=== PATIENT | female | born 1940 | race Caucasian/White ===

== ENCOUNTER 2017-03-06 17:30 | Emergency (ER) | payer MEDICARE, MEDICAID ==
[~2017-03-06] VITALS: Ht 167.6 cm; Wt 190.9 kg
[2017-03-06 17:49] VITALS: BP 161/68; PULSE 77; RESP 20; O2SAT 94
--- NOTE | 2017-03-06 18:09 | ED.REPORT ---
HPI-General Illness Date of Service Mar 06, 2017 ED Provider: Jer Rodriguez MD Patient is a 76 year old female with a hx of seizures who presents to the ED via EMS from [facility] [place] complaining of a seizure while sitting onset this afternoon. She is amnestic to the event. Per EMS, she had 3 full body clonic tonic seizures within one hour that lasted 1 to 3 minutes each. Upon interviewing patient, she believes the seizures happened yesterday and appears slightly confused. Her only complaint is chronic L lower extremity pain. She denies chest pain, vision changes, headache, abdominal pain, constipation, diarrhea, hematochezia, hematuria, SOB, neck pain, or any other symptoms. She denies any recent illness. History is somewhat limited secondary to patient 's condition. According to her niece (her POA) her last seizure was 4 months ago after which she was seen at [facility]. 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 She takes Keppra for her seizures. Nursing Notes Stated Complaint: SEIZURE Chief Complaint: Neuro Symptoms/ Deficits Nursing Notes Reviewed: Yes Allergies: Coded Allergies: Penicillins (Verified Allergy, Mild, 03/06/17) General Time Seen by MD: 18:07 Chief Complaint Seizure Hx Obtained From: Patient, EMS Arrived By: Ambulance Sudden in Onset?: Yes Similar Sx Previous: Yes Past Medical History Past Medical History Seizures Spinal meningitis Reports: Hypertension Unable to Obtain History Past medical history, Past surgical history, Family history, Smoking history, Social history, Occupation, Ambulatory status Review of Systems Unable to obtain a complete ROS due to mental status. Patient has no complaints besides chronic L lower extremity pain and denies chest pain, vision changes, headache, abdominal pain, constipation, diarrhea, hematochezia, hematuria, SOB, neck pain, or any other symptoms. Unable to Obtain ROS Mental status Physical Exam Vital Signs Vital Signs Date Time Temp Pulse Resp B/P Pulse Ox O2 Delivery O2 Flow Rate FiO2 03/06/17 23:13 72 19 183/71 100 Nasal Cannula 2 03/06/17 21:58 37 88 20 173/81 98 Room Air 03/06/17 19:56 36.1 88 20 184/93 94 Nasal Cannula 2 03/06/17 17:49 36.8 77 20 161/68 94 Room Air Initial VS: Reviewed, Vital signs abnormal General/Constitutional: Awake, Alert Morbidly obese female lying in bed. Not diaphoretic. Head / Eyes: Atraumatic, Normocephalic EOM are normal. Pupils are equal, round, and reactive to light. ENT: Mucous membranes moist No lacerations on tongue Oropharynx is clear and moist. No oropharyngeal exudate. Neck: Supple, Non-tender no tracheal deviation. Respiratory / Chest: No respiratory distress Effort normal and breath sounds normal Cardiovascular: Heart rate NL, Regular rhythm, Heart sounds NL, Peripheral circulation NL, Pulses = bilaterally Abdomen: Atraumatic, Soft, Non-tender, No guarding, No rebound, BS normoactive , No distention Upper Extremities Upper Extremity / MS: Inspection NL Range of motion grossly intact, moving all extremities. No edema or tenderness appreciated Lower Extremity / Pelvis / MS: No edema Diffuse tenderness to the proximal LLE Range of motion grossly intact, moving all extremities. Skin: Warm, Dry no rashes or pallor appreciated. Neurologic: Speech NL Sensation and strength intact and equal in all extremities. Alert. Oriented x2, difficulty with answering questions FNF nL No pronator drift Psychiatric: Affect NL, Mood NL Behavior appears normal. Interpretation & Diagnostics Lab Results Interpretation Result Diagram: 03/06/17 2030 03/06/17 2030 Test 03/06/17 20:30 White Blood Count 10.4th/mm3 (3.8-10.1) Red Blood Count 4.33mil/mm3 (3.90-5.20) Hemoglobin 13.6g/dL (12.0-15.6) Hematocrit 41.7% (35.0-46.0) Mean Corpuscular Volume 96.3fL (81-100) Mean Corpuscular Hemoglobin 31.4pg (27.0-35.0) Mean Corpuscular Hemoglobin Concent 32.6% (32.0-37.0) Red Cell Distribution Width 13.0% (12.3-15.4) Platelet Count 202bil/L (150-400) Neutrophils (%) (Auto) 79.5% (40-74) Lymphocytes (%) (Auto) 12.0% (14-46) Monocytes (%) (Auto) 5.6% (4-12) Eosinophils (%) (Auto) 2.4% (0-5) Basophils (%) (Auto) 0.2% (0-3) Prothrombin Time 10.6sec (8.1-12.5) Prothromb Time International Ratio 0.99ratio Sodium Level 138mEq/L (134-144) Potassium Level 3.9mEq/L (3.5-5.2) Chloride Level 99mEq/L (97-108) Carbon Dioxide Level 25mmol/L (18-29) Blood Urea Nitrogen 14mg/dL (8-27) Creatinine 0.59mg/dL (0.57-1.00) Estimat Glomerular Filtration Rate 143mL/min (>59) Glucose Level 130mg/dL (60-99) Calcium Level 9.6mg/dL (8.5-10.1) Total Bilirubin 0.7mg/dL (0.0-1.2) Aspartate Amino Transf (AST/SGOT) 15U/L (0-50) Alanine Aminotransferase (ALT/SGPT) 9U/L (0-32) Alkaline Phosphatase 122U/L (25-165) Total Protein 6.9g/dL (6.4-8.4) Albumin 3.6g/dL (3.4-5.0) Alcohols < 10mg/dL (0-10) ECG Interpretation ECG Interpretation: no prior Sinus rate 79 Prolonged KS interval Time: 18:47 Interpreted by: ED physician X-Ray Chest Interpretation Chest Xray Interpretation: IMPRESSION: No acute pulmonary process. Dictated by: Divya Granado M.D. on 03/06/2017 at 19:33 Approved by: Divya Granado M.D. on 03/06/2017 at 19:33 View: Portable, 1 view Interpretation / Wet Read by: Interpret - Radiologist X-Ray Interpretation Xray Interpretation: IMPRESSION: Significant rotation at the knee with overlapping condylar osseous shadows of the knee. Given patient's body habitus, positioning and rotation, area of underlying fracture cannot be definitively excluded. If concern exists, CT is recommended. Dictated by: Divya Granado M.D. on 03/06/2017 at 19:30 Approved by: Divya Granado M.D. on 03/06/2017 at 19:33 X-Ray Ordered: Knee left Interpretation / Wet Read by: Interpret - Radiologist Xray Interpretation: IMPRESSION: Limited evaluation of the left hip suspicious for femoral neck fracture. As noted, this is better visualized on CT exam of 03/06/17. Dictated by: Divya Granado M.D. on 03/06/2017 at 20:31 Approved by: Divya Granado M.D. on 03/06/2017 at 20:32 Study Performed: X-ray pelvis/ Hip X-Ray Ordered: Pelvis Interpretation / Wet Read by: Interpret - Radiologist Xray Interpretation: IMPRESSION: 1. Significantly limited examination secondary to patient body habitus and positioning. 2. Suspected left femoral neck fracture, better appreciated on CT exam dated 03/06/17. 3. Nondiagnostic evaluation for fracture at the level of the knee secondary to overlapping shadows. Dictated by: Divya Granado M.D. on 03/06/2017 at 20:29 Approved by: Divya Granado M.D. on 03/06/2017 at 20:31 X-Ray Ordered: Femur left CT Head Interpretation IMPRESSION: 1. No acute intracranial process. 2. Moderate atrophy and chronic microvascular ischemic changes. Dictated by: Divya Granado M.D. on 03/06/2017 at 19:39 Approved by: Divya Granado M.D. on 03/06/2017 at 19:41 Study: Head CT no contrast Interpretation / Wet Read by: Interpret - Radiologist CT Abd / Pelvis Interpretation IMPRESSION: 1. Significant degenerative changes within the left hip with angulation and apparent fracture of the left femoral neck. 2. No visceral injury. Dictated by: Divya Granado M.D. on 03/06/2017 at 20:15 Approved by: Divya Granado M.D. on 03/06/2017 at 20:27 Study type: Abdominal CT IV contrast Interpretation / Wet Read by: Interpret - Radiologist CT C-Spine Interpretation IMPRESSION: 1. Multilevel degenerative changes. 2. No gross visualized fracture. However, it is noted motion is present, limiting areas of fine detail evaluation. Dictated by: Divya Granado M.D. on 03/06/2017 at 20:27 Approved by: Divya Granado M.D. on 03/06/2017 at 20:29 Study type: CT no contrast Interpretation / Wet Read by: Interpret - Radiologist Re-Eval/Medical Decision Med Decision/Clinical Course In summary, 76-year-old female with a complex past medical history including morbid obesity, seizure disorder presenting to the ED for evaluation after reportedly having 3 tonic-clonic seizures earlier today. Upon arrival, patient appears to be postictal but is improving per EMS report. She is answering some questions. Initial laboratory studies and imaging notable for no evidence of acute intracranial abnormality on noncontrast head CT, possible left femoral neck fracture on CT of the patient's pelvis discussed with orthopedics. Unclear if this is acute versus chronic. Patient subsequently reassessed and noted to be declining; while she has maintained wakefulness and is protecting airway, she was noted to have some lip smacking and difficulty answering questions. This is a clear change from her mental status upon arrival. 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 Consulted neurology at [facility]. Patient given fosphenytoin, additional Keppra here in the ED. Given concern for nonconvulsive status epilepticus, plan transfer to [facility] for higher level of care, further evaluation and management. I discussed the plan with the patient's POA at length. Time of Eval: 20:59 Re-Evaluation/Progress Note: Rechecked pt. Discussed imaging results and plan for admission. Patient understands and agrees with plan. All questions addressed at this time. Time of Eval: 21:32 Re-Evaluation/Progress Note: Patient was improving and is now occasionally having some lip smacking and not answering questions. Time of Eval: 22:26 Re-Evaluation/Progress Note: Discussed plan for transport to [facility]. Patient understands and agrees with plan. All questions addressed at this time. Consultation #1: Referral / Consult Name: Catalino Morales MD Consulted With: Orthopedic Call Returned at: 20:56 Senior Maintenance Technician: Will see patient, Agrees with eval, Agrees with plan Note: Discussed pt case. He thinks that the femoral neck fracture may not be acute. If admitted here, will see as a consult. Consultation #2: Consulted With: Neurology Call Returned at: 22:16 Senior Maintenance Technician: Agrees with eval, Agrees with plan, Accepts admit Note: Discussed pt case with Dr. Harvey with [facility] neurology. Accepts admit. She will go to the ICU and should be given fosphenytoin 20mg/kg up to 2g as well as an additional 500 mg of Keppra. Counseled Regarding: Diagnosis, Lab results, Need for transfer Discharge & Departure Primary Impression: Seizure Additional Impression: Fracture of femoral neck, left Encounter type: initial encounter Fracture type: closed Qualified Code: S72.002A - Fracture of unspecified part of neck of left femur, initial encounter for closed fracture Disposition: Transfer, Acute Care Facility Receiving Hospital: Dr. Harvey with [facility] Neurology accepts pt. Transfer Accepted: Yes Transfer Accepted at: 22:16 Transfer Reason: Higher level of care Spoke with: Attending physician Patient Status: Stable for transfer Patient Informed: Yes Discharge Condition All VS Reviewed: Yes Condition: Stable Crit Care Except Billable Proc Time Spent: 75-104 minutes Services Performed: Patient management by me, Time spent at bedside, Reviewing test results, Reviewing imaging, Discussing patient care, Documentation in record Critical Care Notes: Please see MDM Scribe Attestation Portions of this note were transcribed by River Arreaga. I, Dr. Rodriguez personally performed the history, physical exam and medical decision-making; I reviewed and confirmed the accuracy of the information in the transcribed note. Signed by: River Arreaga 03/06/17, 2230 Jer Rodriguez MD Mar 06, 2017 18:09 RIVER ARREAGA Mar 06, 2017 18:37
[2017-03-06] MEDS ORDERED: 0.9% Sodium Chloride 1,000 ML IV ONE (18:36)
--- NOTE | 2017-03-06 19:35 | DRSVH ---
PROCEDURE: X-RAY CHEST ONE VIEW, PORTABLE ([id number]) INDICATIONS: seizure TECHNIQUE: One view of the chest was acquired. COMPARISON: None. FINDINGS: Surgical changes and devices: None. Lungs and pleura: No pleural effusions or pneumothorax. Lungs are clear. Mediastinum: Mediastinal contours appear normal. Heart size is normal. Bones and chest wall: No suspicious bony lesions. Overlying soft tissues appear unremarkable. IMPRESSION: No acute pulmonary process. Dictated by: Divya Granado M.D. on 03/06/2017 at 19:33 Approved by: Divya Granado M.D. on 03/06/2017 at 19:33
--- NOTE | 2017-03-06 19:35 | DRSVH ---
PROCEDURE: X-RAY LEFT KNEE, ONE OR TWO VIEWS ([id number]) INDICATIONS: LLE pain after seizure TECHNIQUE: 2 views of the knee were acquired. COMPARISON: [facility], CR, XR FEMUR 2VW LT, 03/06/2017, 18:53. FINDINGS: Bones: Limited exam secondary to patient body habitus as well as positioning. There is overlapping osseous shadows of the femoral condyles. However, the patient is significantly r otated. Soft tissues: No joint effusion. No suspicious soft tissue calcifications. IMPRESSION: Significant rotation at the knee with overlapping condylar osseous shadows of the knee. G iven patient's body habitus, positioning and rotation, area of underlying fracture cannot be definiti vely excluded. If concern exists, CT is recommended. Dictated by: Divya Granado M.D. on 03/06/2017 at 19:30 Approved by: Divya Granado M.D. on 03/06/2017 at 19:33
--- NOTE | 2017-03-06 19:42 | DRSVH ---
PROCEDURE: CT BRAIN WITHOUT CONTRAST ([id number]) INDICATIONS: seizure; eval for mass, other abnl TECHNIQUE: Noncontrast 4.5 mm thick angled axial sections acquired from the foramen magnum to the vertex, with c oronal reformats. COMPARISON: None. FINDINGS: Image quality: Excellent. CSF spaces: Basal cisterns are patent. No extra-axial fluid collections. The ventricles are symmet aiden in size and shape. Brain: No intracranial bleeds or masses. There is cerebral volume loss for age, with resultant vent ricular and sulcal prominence. There are periventricular and deep white matter chronic small vessel ischemic changes. There is intracranial internal carotid artery atherosclerosis. Skull and face: Calvarium and visualized facial bones appear intact, without suspicious lesions. Sinuses: Visualized sinuses demonstrate a left maxillary mucous retention cyst versus polyp. IMPRESSION: 1. No acute intracranial process. 2. Moderate atrophy and chronic microvascular ischemic changes. Dictated by: Divya Granado M.D. on 03/06/2017 at 19:39 Approved by: Divya Granado M.D. on 03/06/2017 at 19:41
[2017-03-06 19:56] VITALS: BP 184/93; PULSE 88; RESP 20; O2SAT 94
--- NOTE | 2017-03-06 20:29 | DRSVH ---
PROCEDURE: CT CHEST, ABDOMEN AND PELVIS WITH CONTRAST ([id number]) INDICATIONS: possible fall after seizure; morbid obesity TECHNIQUE: After the administration of intravenous contrast, 5 mm thick sections acquired from the lung apices t o the symphysis. 5 mm thick coronal and sagittal reformats were acquired. Additional 7 mm thick cor onal maximum intensity projection (MIP) reformats acquired through the lungs. Optional 10-minute del ayed imaging may be performed from the kidneys to the bladder. For radiation dose reduction, the fol lowing was used: automated exposure control, adjustment of mA and/or kV according to patient size. COMPARISON: None. FINDINGS: Image quality: Excellent. CHEST: Lungs: No pulmonary contusions or lacerations. No acute airspace opacities. No pneumothorax or hem othorax. Central and peripheral airways appear patent and normal in caliber. Mediastinum: No mediastinal hematomas. Heart size is normal. No pericardial effusion. Thoracic ao rta and pulmonary arteries demonstrate normal size and enhancement. No mediastinal or hilar adenopat hy. Esophagus is normal in caliber. No hiatal hernia. Chest wall: No rib fractures. No subcutaneous emphysema. No axillary or supraclavicular adenopathy . Thyroid gland is normal. ABDOMEN: Solid organs: Liver and spleen are normal in size and enhancement, without lacerations. Gallbladder is normal. Biliary system is non-dilated. Pancreas enhances normally, without transection. No adr enal hematomas. Both kidneys enhance normally, without hydronephrosis or lacerations. Nonobstructin g bilateral renal calculi. Peritoneum and bowel: No free fluid or air. Unenhanced bowel loops demonstrate normal wall thicknes s and caliber. Colonic diverticula are present. Nodes and vessels: No retroperitoneal or mesenteric adenopathy. Aorta and inferior vena cava are no rmal in size and enhancement. Miscellaneous: No ventral hernias. PELVIS: Genitourinary: Bladder wall thickness is normal. Lobulations are present within the uterus suggesti ve of fibroids. Miscellaneous: No inguinal hernias or adenopathy. Bones: There is a flattened deformity of the left femoral head as well as a superior migrated appeara nce within the acetabulum. Extensive degenerative changes are present within the femoral head as well as acetabulum. There is an angulated position of the femoral head in relation to the remaining porti on of the proximal femur. No vertebral compression fractures. IMPRESSION: 1. Significant degenerative changes within the left hip with angulation and apparent fracture of the left femoral neck. 2. No visceral injury. Dictated by: Divya Granado M.D. on 03/06/2017 at 20:15 Approved by: Divya Granado M.D. on 03/06/2017 at 20:27
--- NOTE | 2017-03-06 20:31 | DRSVH ---
PROCEDURE: CT CERVICAL SPINE WITHOUT CONTRAST ([id number]) INDICATIONS: possible fall after seizure; morbid obesity TECHNIQUE: Noncontrast 3 mm thick sections acquired from the skull base to the T4 level. Sagittal and coronal r eformats were then constructed. For radiation dose reduction, the following was used: automated exp osure control, adjustment of mA and/or kV according to patient size. COMPARISON: None. FINDINGS: Image quality: Motion is present, limiting areas of fine detail evaluation. Bones: No fractures or dislocations. Visualized superior ribs are intact. Multilevel degenerative changes are present within the cervical spine. Soft tissues: Prevertebral soft tissues are normal in thickness. No paravertebral hematomas. No ap ical pneumothoraces. IMPRESSION: 1. Multilevel degenerative changes. 2. No gross visualized fracture. However, it is noted motion is present, limiting areas of fine detai l evaluation. Dictated by: Divya Granado M.D. on 03/06/2017 at 20:27 Approved by: Divya Granado M.D. on 03/06/2017 at 20:29
--- NOTE | 2017-03-06 20:33 | DRSVH ---
PROCEDURE: X-RAY LEFT FEMUR, TWO VIEWS ([id number]) INDICATIONS: LLE pain after seizure TECHNIQUE: 3 views of the femur were acquired. COMPARISON: None. FINDINGS: Bones: Limited examination secondary to patient positioning. As noted on prior exam, overlapping cond ylar shadows at the knee are present as well as superimposed degenerative change. Degenerative change s are present within the hip as well as a superior position of the femoral head within the acetabulum , better appreciated on CT chest abdomen pelvis 03/06/17. Soft tissues: No suspicious soft tissue calcifications or masses. IMPRESSION: 1. Significantly limited examination secondary to patient body habitus and positioning. 2. Suspected left femoral neck fracture, better appreciated on CT exam dated 03/06/17. 3. Nondiagnostic evaluation for fracture at the level of the knee secondary to overlapping shadows. Dictated by: Divya Granado M.D. on 03/06/2017 at 20:29 Approved by: Divya Granado M.D. on 03/06/2017 at 20:31
--- NOTE | 2017-03-06 20:34 | DRSVH ---
PROCEDURE: X-RAY PELVIS W/LAT HIP (LT) ([id number]) INDICATIONS: LLE pain after seizure TECHNIQUE: AP pelvis with lateral view(s) of the left hip(s). COMPARISON: None. FINDINGS: Bones: The left hip demonstrate significant degenerative changes. There is poor visualization of the femoral head and neck with apparent foreshortening as well superior appearance of the femoral head wi thin the acetabulum. Soft tissues: The visualized bowel gas pattern is normal. No suspicious soft tissue calcifications. IMPRESSION: Limited evaluation of the left hip suspicious for femoral neck fracture. As noted, this i s better visualized on CT exam of 03/06/17. Dictated by: Divya Granado M.D. on 03/06/2017 at 20:31 Approved by: Divya Granado M.D. on 03/06/2017 at 20:32
[2017-03-06 20:45] LABS: BASOPHILS % (AUTO) 0.2 % (0-3); EOSINOPHILS % (AUTO) 2.4 % (0-5); MONOCYTES % (AUTO) 5.6 % (4-12); Mean Corpuscular Hemoglobin 31.4 pg (27.0-35.0); Mean Corpuscular Volume 96.3 fL (81-100); NEUTROPHILS % (AUTO) 79.5 % (40-74); Platelet Count 202 bil/L (150-400)
[2017-03-06 20:56] LABS: INR 0.99 ratio
[2017-03-06] MEDS ORDERED: levETIRAcetam Inj 1,000 MG in IV Premix 1 EACH IV ONE (21:35)
[2017-03-06] MEDS ORDERED: HYDROmorphone 0.5 mg/0.5 mL iSecure Syringe IVPUSH ONE (21:35)
[2017-03-06 21:58] VITALS: BP 173/81; PULSE 88; RESP 20; O2SAT 98
[2017-03-06] MEDS ORDERED: FOSPHENYTOIN IV ONE (22:25)
[2017-03-06] MEDS ORDERED: MGPE IV ONE (22:25)
[2017-03-06] MEDS ORDERED: SODIUM CHLORIDE 0.9% IV ONE (22:25)
[2017-03-06 23:13] VITALS: BP 183/71; PULSE 72; RESP 19; O2SAT 100
[2017-03-06 23:45] VITALS: BP 177/73; PULSE 74; RESP 19; O2SAT 100
== END 2017-03-06 23:51 | disposition short-term general hospital (02) ==
LOC: SED 17:30 → EDBD 17:30 → SED 23:51
DX: G40.909 Epilepsy, unspecified, not intractable, without status epilepticus (principal); S72.002A Fracture of unspecified part of neck of left femur, initial encounter for closed fracture; X58.XXXA Exposure to other specified factors, initial encounter; Y92.129 Unspecified place in nursing home as the place of occurrence of the external cause; Y93.89 Activity, other specified; Y99.8 Other external cause status; E66.01 Morbid (severe) obesity due to excess calories; I10 Essential (primary) hypertension; Z86.61 Personal history of infections of the central nervous system; Z68.44 Body mass index [BMI] 60.0-69.9, adult; Z88.0 Allergy status to penicillin
CPT/HCPCS: 36415; 70450; 71010; 71260; 72125; 73501; 73551; 73560; 74177; 80053; 85025; 85610; 93005; 96361; 96365; 96375; 99291; 99292; G0480; J1170; J1953; J7030; Q2009; Q9967